=== PATIENT | male | born 1950 | race Caucasian/White ===

== ENCOUNTER 2017-02-14 11:01 | Inpatient (IN) | payer MEDICARE, MEDICAID ==
[~2017-02-14] VITALS: Ht 170.2 cm; Wt 71.8 kg
[~2017-02-14 11:01] MED LIST: ALEN70TA48 PO; BUPR100 PO; CARB200T6 PO; DIAZ10 PO; ESCI20TA PO; METF500T4 PO; METH10TA4 PO; OXYC5 PO; RISP4 PO; SULF-168 PO
[2017-02-14 11:17] LABS: GLUCOSE,POINT OF CARE 170 MG/DL (70-110)
[2017-02-14] MEDS ORDERED: HYDROCODONE/ACETAMINOPHEN 5-325 MG TABLET PO ONE ×2 (12:30→17:30)
[2017-02-14 13:16] LABS: BASOPHILS % (AUTO) 0.9 % (0.0-2.0); EOSINOPHILS % (AUTO) 1.8 % (1.0-6.0); HEMATOCRIT 46.9 % (41-53); HEMOGLOBIN 16.4 g/dL (13.5-17.5); LYMPHOCYTES # (AUTO) 1.3 K/uL (1.0-4.8); LYMPHOCYTES % (AUTO) 24.3 % (22.0-44.0); MEAN CORPUSCULAR HEMOGLOBIN 33.5 pg (26.0-34.0); MEAN CORPUSCULAR HGB CONC 35.1 G/dL (31.0-37.0); MEAN CORPUSCULAR VOLUME 96 fL (80-100); MONOCYTES # (AUTO) 0.5 K/uL (0.1-1.0); MONOCYTES % (AUTO) 8.5 % (2.0-9.0); NEUTROPHILS # (AUTO) 3.5 K/uL (1.8-7.7); NEUTROPHILS % (AUTO) 64.5 % (40.0-70.0); PLATELET COUNT (AUTO) 177 K/uL (150-450); RED CELL DISTRIBUTION WIDTH 14.5 % (11.5-14.5); WHITE BLOOD COUNT (AUTO) 5.5 K/uL (4.5-11.0)
[2017-02-14 13:35] LABS: ANION GAP 3 mmol/L (8-16); CALCIUM, TOTAL 9.7 mg/dL (8.8-10.5); CARBON DIOXIDE 29 mmol/L (22-29); CHLORIDE 104 mmol/L (98-107); CREATININE 0.52 mg/dL (0.60-1.30); GLOMERULAR FILTR. RATE CALC > 60 mL/min (>60); POTASSIUM 5.5 mmol/L (3.5-5.1); SODIUM SERUM 136 mmol/L (136-145); UREA NITROGEN, BLOOD 17 mg/dL (7-18)
[2017-02-14 13:40] LABS: ALANINE AMINOTRANSFERASE 33 U/L (12-78); ALBUMIN 3.8 g/dL (3.4-5.0); ASPARTATE AMINOTRANSFERASE 25 U/L (15-37); BILIRUBIN,TOTAL 0.4 mg/dL (0.1-1.0); TOTAL PROTEIN, SERUM 7.7 g/dL (6.4-8.2)
[2017-02-14] MEDS ORDERED: HALOPERIDOL 5 MG TABLET PO PRN (16:15)
[2017-02-14 21:37] VITALS: BP 160/98
[2017-02-14] MEDS ORDERED: DEXTROSE 50%-WATER 25 GM/50 ML SYRINGE IVP PRN (22:00)
[2017-02-15] VITALS: BP 164/81
[2017-02-15] MEDS: ACETAMINOPHEN 325 MG TABLET PO PRN ×2 (03:09→23:57)
[2017-02-15 06:08] LABS: GLUCOSE COMMENT 1 Received Meds; GLUCOSE,POINT OF CARE 150 MG/DL (70-110)
[2017-02-15] MEDS ORDERED: ALENDRONATE SODIUM 70 MG TABLET PO SCH (06:30)
[2017-02-15] MEDS: INSULIN ASPART 100 UNITS/ML SQ PRN ×3 (07:08→22:11)
[2017-02-15] MEDS: MetFORMIN HCL 500 MG TABLET PO SCH (07:15)
[2017-02-15 08:45] VITALS: BP 109/61
[2017-02-15] MEDS: IBUPROFEN 600 MG TABLET PO PRN ×3 (09:27→17:26)
[2017-02-15] MEDS: CarBAMazepine 200 MG TABLET PO SCH ×2 (09:28→17:26)
[2017-02-15] MEDS: DIGOXIN 125 MCG TABLET PO SCH (09:28)
[2017-02-15] MEDS ORDERED: MAG HYDROX/AL HYDROX/SIMETH ES 30 ML SUSPENSION UDCUP PO PRN (10:00)
[2017-02-15] MEDS ORDERED: MAGNESIUM HYDROXIDE SUSPENSION 30 ML UDCUP PO PRN (10:00)
[2017-02-15] MEDS ORDERED: LOPERAMIDE HCL 2 MG CAPSULE PO PRN (10:00)
[2017-02-15] MEDS ORDERED: CloNIDine HCL 0.1 MG TABLET PO PRN (10:00)
[2017-02-15] MEDS ORDERED: ONDANSETRON HCL 4 MG TABLET PO PRN (10:00)
[2017-02-15] MEDS ORDERED: BACITRACIN 28.4 GM OINTMENT TP PRN (10:00)
[2017-02-15] MEDS ORDERED: BENZOCAINE/MENTHOL LOZENGE MM PRN (10:00)
[2017-02-15] MEDS ORDERED: ALBUTEROL SULFATE HFA 90 MCG/PUFF 8 GM INHALER IH PRN (10:00)
[2017-02-15] MEDS ORDERED: PETROLATUM,WHITE 71 GM JELLY TP PRN (10:00)
[2017-02-15] MEDS ORDERED: BENZOCAINE/MENTHOL LOZENGE [8 LOZENGES/PACKET] MM PRN (10:19)
[2017-02-15 10:40] VITALS: BP 126/72
[2017-02-15 11:33] LABS: GLUCOSE COMMENT 1 Received Meds; GLUCOSE,POINT OF CARE 148 MG/DL (70-110)
[2017-02-15 17:08] LABS: GLUCOSE,POINT OF CARE 95 MG/DL (70-110)
[2017-02-15 17:20] VITALS: BP 163/71
[2017-02-15 18:30] VITALS: BP 140/73
[2017-02-15 20:28] LABS: GLUCOSE,POINT OF CARE 152 MG/DL (70-110)
[2017-02-15] MEDS: ZOLPIDEM TARTRATE 10 MG TABLET PO PRN ×2 (21:58)
[2017-02-15 23:50] VITALS: BP 163/97
[2017-02-15] MEDS: LORazepam 2 MG TABLET PO PRN (23:56)
[2017-02-16] VITALS (7 sets, daily range): BP systolic 140–174; BP diastolic 80–100
[2017-02-16 06:35] LABS: GLUCOSE,POINT OF CARE 126 MG/DL (70-110)
[2017-02-16] MEDS: MetFORMIN HCL 500 MG TABLET PO SCH (07:30)
[2017-02-16] MEDS: CarBAMazepine 200 MG TABLET PO SCH ×2 (08:43→16:41)
[2017-02-16] MEDS: OMEPRAZOLE 20 MG CAPSULE PO SCH (08:43)
[2017-02-16] MEDS: DIGOXIN 125 MCG TABLET PO SCH (08:43)
[2017-02-16] MEDS: DOCUSATE SODIUM 100 MG CAPSULE PO SCH (08:43)
[2017-02-16] MEDS: INSULIN ASPART 100 UNITS/ML SQ PRN ×2 (11:30→22:59)
[2017-02-16 11:43] LABS: GLUCOSE,POINT OF CARE 152 MG/DL (70-110)
[2017-02-16 18:17] LABS: GLUCOSE,POINT OF CARE 147 MG/DL (70-110)
[2017-02-16] MEDS: IBUPROFEN 600 MG TABLET PO PRN (18:47)
[2017-02-16] MEDS: LORazepam 2 MG TABLET PO PRN (18:47)
[2017-02-17] MEDS: IBUPROFEN 600 MG TABLET PO PRN ×2 (01:30→21:15)
[2017-02-17 01:31] VITALS: BP 146/85
[2017-02-17] MEDS: ZOLPIDEM TARTRATE 10 MG TABLET PO PRN (02:16)
[2017-02-17 06:23] LABS: GLUCOSE,POINT OF CARE 114 MG/DL (70-110)
[2017-02-17] MEDS: MetFORMIN HCL 500 MG TABLET PO SCH (07:04)
[2017-02-17] MEDS: LISINOPRIL 10 MG TABLET PO SCH (08:24)
[2017-02-17] MEDS: DIGOXIN 125 MCG TABLET PO SCH (08:24)
[2017-02-17] MEDS: DOCUSATE SODIUM 100 MG CAPSULE PO SCH (08:24)
[2017-02-17] MEDS: OMEPRAZOLE 20 MG CAPSULE PO SCH (08:24)
[2017-02-17] MEDS: CarBAMazepine 200 MG TABLET PO SCH ×2 (08:24→17:08)
[2017-02-17 09:17] VITALS: BP 165/76
[2017-02-17] MEDS: INSULIN ASPART 100 UNITS/ML SQ PRN ×2 (11:21→21:11)
[2017-02-17 12:04] LABS: GLUCOSE,POINT OF CARE 150 MG/DL (70-110)
[2017-02-17 17:19] VITALS: BP 161/77
[2017-02-17 17:28] LABS: GLUCOSE,POINT OF CARE 133 MG/DL (70-110)
[2017-02-17 20:48] LABS: GLUCOSE,POINT OF CARE 149 MG/DL (70-110)
[2017-02-17 21:15] VITALS: BP 140/85
[2017-02-17 22:08] VITALS: BP 142/77
[2017-02-18] MEDS: LORazepam 2 MG TABLET PO PRN ×2 (00:14→22:16)
[2017-02-18] MEDS: ZOLPIDEM TARTRATE 10 MG TABLET PO PRN ×2 (00:14→22:16)
[2017-02-18 00:24] VITALS: BP 138/69
[2017-02-18 00:28] LABS: GLUCOSE,POINT OF CARE 124 MG/DL (70-110)
[2017-02-18 05:46] VITALS: BP 151/78
[2017-02-18] MEDS: IBUPROFEN 600 MG TABLET PO PRN ×2 (05:51→16:20)
[2017-02-18 06:33] LABS: GLUCOSE,POINT OF CARE 105 MG/DL (70-110)
[2017-02-18] MEDS: INSULIN ASPART 100 UNITS/ML SQ PRN ×2 (06:40→21:06)
[2017-02-18] MEDS: MetFORMIN HCL 500 MG TABLET PO SCH (07:03)
[2017-02-18 08:22] LABS: CHOL/HDL RATIO 2.2 (4.2-7.3)
[2017-02-18 08:40] VITALS: BP 177/77
[2017-02-18] MEDS: DOCUSATE SODIUM 100 MG CAPSULE PO SCH (08:54)
[2017-02-18] MEDS: CarBAMazepine 200 MG TABLET PO SCH ×2 (08:54→16:18)
[2017-02-18] MEDS: LISINOPRIL 10 MG TABLET PO SCH (08:54)
[2017-02-18] MEDS: DIGOXIN 125 MCG TABLET PO SCH (08:54)
[2017-02-18] MEDS: OMEPRAZOLE 20 MG CAPSULE PO SCH (08:54)
[2017-02-18 11:17] LABS: GLUCOSE,POINT OF CARE 129 MG/DL (70-110)
[2017-02-18 16:20] VITALS: BP 127/87
[2017-02-18 17:03] LABS: GLUCOSE,POINT OF CARE 116 MG/DL (70-110)
[2017-02-18 17:20] VITALS: BP 144/86
[2017-02-18 20:48] LABS: GLUCOSE COMMENT 1 Received Meds; GLUCOSE,POINT OF CARE 153 MG/DL (70-110)
[2017-02-19 05:18] LABS: GLUCOSE COMMENT 1 FASTING; GLUCOSE,POINT OF CARE 98 MG/DL (70-110)
[2017-02-19] MEDS: MetFORMIN HCL 500 MG TABLET PO SCH (06:30)
[2017-02-19 07:03] VITALS: BP 135/79
[2017-02-19 08:18] VITALS: BP 166/72
[2017-02-19] MEDS: IBUPROFEN 600 MG TABLET PO PRN ×2 (08:18→16:17)
[2017-02-19] MEDS: DOCUSATE SODIUM 100 MG CAPSULE PO SCH (08:53)
[2017-02-19] MEDS: LISINOPRIL 10 MG TABLET PO SCH (08:53)
[2017-02-19] MEDS: OMEPRAZOLE 20 MG CAPSULE PO SCH (08:53)
[2017-02-19] MEDS: CarBAMazepine 200 MG TABLET PO SCH ×2 (08:54→16:18)
[2017-02-19] MEDS: DIGOXIN 125 MCG TABLET PO SCH (08:54)
[2017-02-19 09:18] VITALS: BP 160/88
[2017-02-19 11:23] LABS: GLUCOSE,POINT OF CARE 136 MG/DL (70-110)
[2017-02-19 16:15] VITALS: BP 154/80
[2017-02-19 17:00] VITALS: BP 154/80
[2017-02-19 17:13] LABS: GLUCOSE,POINT OF CARE 114 MG/DL (70-110)
[2017-02-19 17:15] VITALS: BP 150/79
[2017-02-19] MEDS: ZOLPIDEM TARTRATE 10 MG TABLET PO PRN (21:02)
[2017-02-19 21:07] LABS: GLUCOSE,POINT OF CARE 130 MG/DL (70-110)
[2017-02-20 01:10] VITALS: BP 161/73
[2017-02-20] MEDS: LORazepam 2 MG TABLET PO PRN (01:11)
[2017-02-20] MEDS: IBUPROFEN 600 MG TABLET PO PRN ×3 (01:11→20:32)
[2017-02-20 05:00] VITALS: BP 146/71
[2017-02-20] MEDS: ACETAMINOPHEN 325 MG TABLET PO PRN (05:03)
[2017-02-20 05:39] LABS: GLUCOSE COMMENT 1 Received Meds; GLUCOSE,POINT OF CARE 103 MG/DL (70-110)
[2017-02-20] MEDS: MetFORMIN HCL 500 MG TABLET PO SCH (06:58)
[2017-02-20] MEDS: DOCUSATE SODIUM 100 MG CAPSULE PO SCH (08:34)
[2017-02-20] MEDS: CarBAMazepine 200 MG TABLET PO SCH ×2 (08:34→16:32)
[2017-02-20] MEDS: DIGOXIN 125 MCG TABLET PO SCH (08:34)
[2017-02-20] MEDS: LISINOPRIL 10 MG TABLET PO SCH (08:34)
[2017-02-20] MEDS: OMEPRAZOLE 20 MG CAPSULE PO SCH (08:34)
[2017-02-20 08:35] VITALS: BP 162/81
[2017-02-20 11:28] LABS: GLUCOSE,POINT OF CARE 130 MG/DL (70-110)
[2017-02-20 16:00] VITALS: BP 138/62
[2017-02-20] MEDS: INSULIN ASPART 100 UNITS/ML SQ PRN ×2 (17:14→21:01)
[2017-02-20 17:32] LABS: GLUCOSE,POINT OF CARE 159 MG/DL (70-110)
[2017-02-20 20:33] VITALS: BP 155/85
[2017-02-20 20:57] LABS: GLUCOSE,POINT OF CARE 169 MG/DL (70-110)
[2017-02-20 21:33] VITALS: BP 147/68
[2017-02-21] MEDS: ACETAMINOPHEN 325 MG TABLET PO PRN ×3 (04:48→18:00)
[2017-02-21 06:04] LABS: GLUCOSE COMMENT 1 Received Meds; GLUCOSE,POINT OF CARE 120 MG/DL (70-110)
[2017-02-21] MEDS: MetFORMIN HCL 500 MG TABLET PO SCH (07:10)
[2017-02-21 09:41] VITALS: BP 158/74
[2017-02-21] MEDS: DIGOXIN 125 MCG TABLET PO SCH (09:43)
[2017-02-21] MEDS: DOCUSATE SODIUM 100 MG CAPSULE PO SCH (09:43)
[2017-02-21] MEDS: LISINOPRIL 10 MG TABLET PO SCH (09:44)
[2017-02-21] MEDS: OMEPRAZOLE 20 MG CAPSULE PO SCH (09:44)
[2017-02-21] MEDS: CarBAMazepine 200 MG TABLET PO SCH ×3 (09:44→17:59)
[2017-02-21 11:28] LABS: GLUCOSE,POINT OF CARE 134 MG/DL (70-110)
[2017-02-21] MEDS: IBUPROFEN 600 MG TABLET PO PRN ×2 (12:24→21:35)
[2017-02-21 13:27] LABS: APPEARANCE,URINE CLEAR (CLEAR); GLUCOSE, URINE (UA) NEGATIVE (NEGATIVE); KETONES,URINE NEGATIVE (NEGATIVE); LEUKOCYTE ESTERASE ,URINE NEGATIVE (NEGATIVE); OCCULT BLOOD,URINE NEGATIVE (NEGATIVE); PH,URINE 6.5 (5.0-8.0); PROTEIN,URINE NEGATIVE (NEGATIVE)
[2017-02-21 13:57] LABS: ADD UA MICROSCOPIC NO
[2017-02-21 18:05] VITALS: BP 180/84
[2017-02-21 19:10] VITALS: BP 142/88
[2017-02-21 21:18] LABS: GLUCOSE,POINT OF CARE 130 MG/DL (70-110)
[2017-02-21] MEDS: LORazepam 2 MG TABLET PO PRN (21:37)
[2017-02-22 02:52] VITALS: BP 148/98
[2017-02-22] MEDS: ACETAMINOPHEN 325 MG TABLET PO PRN (02:56)
[2017-02-22 06:07] LABS: GLUCOSE,POINT OF CARE 104 MG/DL (70-110)
[2017-02-22] MEDS: MetFORMIN HCL 500 MG TABLET PO SCH (07:10)
[2017-02-22] MEDS: DOCUSATE SODIUM 100 MG CAPSULE PO SCH (08:08)
[2017-02-22] MEDS: DIGOXIN 125 MCG TABLET PO SCH (08:08)
[2017-02-22] MEDS: OMEPRAZOLE 20 MG CAPSULE PO SCH (08:08)
[2017-02-22] MEDS: CarBAMazepine 200 MG TABLET PO SCH ×2 (08:08→17:09)
[2017-02-22] MEDS: LISINOPRIL 10 MG TABLET PO SCH (08:08)
[2017-02-22 08:10] VITALS: BP 175/63
[2017-02-22] MEDS: IBUPROFEN 600 MG TABLET PO PRN ×2 (08:10→15:10)
[2017-02-22 09:10] VITALS: BP 154/76
[2017-02-22 15:10] VITALS: BP 140/82
[2017-02-22 20:37] VITALS: BP 147/67
[2017-02-22] MEDS: ZOLPIDEM TARTRATE 10 MG TABLET PO PRN (22:02)
[2017-02-23 00:42] VITALS: BP 169/81
[2017-02-23] MEDS: LORazepam 2 MG TABLET PO PRN (00:44)
[2017-02-23 02:25] VITALS: BP 164/90
[2017-02-23] MEDS: IBUPROFEN 600 MG TABLET PO PRN ×3 (02:27→21:40)
[2017-02-23 05:42] LABS: GLUCOSE COMMENT 1 Received Meds; GLUCOSE,POINT OF CARE 135 MG/DL (70-110)
[2017-02-23] MEDS: MetFORMIN HCL 500 MG TABLET PO SCH (07:28)
[2017-02-23 08:00] VITALS: BP 152/77
[2017-02-23] MEDS: OMEPRAZOLE 20 MG CAPSULE PO SCH (08:24)
[2017-02-23] MEDS: CarBAMazepine 200 MG TABLET PO SCH ×2 (08:24→16:47)
[2017-02-23] MEDS: DOCUSATE SODIUM 100 MG CAPSULE PO SCH (08:24)
[2017-02-23] MEDS: LISINOPRIL 10 MG TABLET PO SCH (08:25)
[2017-02-23] MEDS: DIGOXIN 125 MCG TABLET PO SCH (08:25)
[2017-02-23] MEDS: DIVALPROEX SODIUM 500 MG DR TABLET PO SCH ×2 (08:25→16:47)
[2017-02-23 08:41] VITALS: BP 150/76
[2017-02-23 09:41] VITALS: BP 140/80
[2017-02-23 14:38] LABS: APPEARANCE,URINE CLEAR (CLEAR); GLUCOSE, URINE (UA) NEGATIVE (NEGATIVE); KETONES,URINE NEGATIVE (NEGATIVE); LEUKOCYTE ESTERASE ,URINE NEGATIVE (NEGATIVE); OCCULT BLOOD,URINE NEGATIVE (NEGATIVE); PROTEIN,URINE NEGATIVE (NEGATIVE)
[2017-02-23 15:06] LABS: ADD UA MICROSCOPIC NO
[2017-02-23] MEDS: ACETAMINOPHEN 325 MG TABLET PO PRN (16:18)
[2017-02-24 00:12] VITALS: BP 149/75
[2017-02-24] MEDS: LORazepam 2 MG TABLET PO PRN (00:19)
[2017-02-24] MEDS: ZOLPIDEM TARTRATE 10 MG TABLET PO PRN ×2 (00:19→19:27)
[2017-02-24] MEDS: ACETAMINOPHEN 325 MG TABLET PO PRN (05:24)
[2017-02-24] MEDS: MetFORMIN HCL 500 MG TABLET PO SCH (07:12)
[2017-02-24 08:02] VITALS: BP 135/76
[2017-02-24] MEDS: IBUPROFEN 600 MG TABLET PO PRN ×3 (08:02→20:47)
[2017-02-24] MEDS: DIVALPROEX SODIUM 500 MG DR TABLET PO SCH ×2 (08:53→17:07)
[2017-02-24] MEDS: DOCUSATE SODIUM 100 MG CAPSULE PO SCH (08:53)
[2017-02-24] MEDS: OMEPRAZOLE 20 MG CAPSULE PO SCH (08:53)
[2017-02-24] MEDS: LISINOPRIL 10 MG TABLET PO SCH (08:53)
[2017-02-24] MEDS: CarBAMazepine 200 MG TABLET PO SCH ×2 (08:53→17:07)
[2017-02-24] MEDS: DIGOXIN 125 MCG TABLET PO SCH (08:53)
[2017-02-24 14:34] VITALS: BP 140/87
[2017-02-24 17:10] VITALS: BP 162/99
[2017-02-24 20:45] VITALS: BP 155/79
[2017-02-24 21:45] VITALS: BP 145/81
[2017-02-25 05:58] LABS: GLUCOSE,POINT OF CARE 109 MG/DL (70-110)
[2017-02-25 06:44] VITALS: BP 157/70
[2017-02-25] MEDS: MetFORMIN HCL 500 MG TABLET PO SCH (07:12)
[2017-02-25 08:38] VITALS: BP 160/96
[2017-02-25] MEDS: CarBAMazepine 200 MG TABLET PO SCH ×2 (08:41→17:09)
[2017-02-25] MEDS: DIVALPROEX SODIUM 500 MG DR TABLET PO SCH ×2 (08:41→17:09)
[2017-02-25] MEDS: DOCUSATE SODIUM 100 MG CAPSULE PO SCH (08:41)
[2017-02-25] MEDS: LISINOPRIL 10 MG TABLET PO SCH (08:41)
[2017-02-25] MEDS: DIGOXIN 125 MCG TABLET PO SCH (08:41)
[2017-02-25] MEDS: OMEPRAZOLE 20 MG CAPSULE PO SCH (08:41)
[2017-02-25] MEDS: IBUPROFEN 600 MG TABLET PO PRN (12:26)
[2017-02-25 17:00] VITALS: BP 160/88
[2017-02-25 18:34] VITALS: BP 158/86
[2017-02-25] MEDS: LORazepam 2 MG TABLET PO PRN (19:47)
[2017-02-26 05:08] VITALS: BP 172/96
[2017-02-26 06:08] LABS: GLUCOSE,POINT OF CARE 130 MG/DL (70-110)
[2017-02-26] MEDS: MetFORMIN HCL 500 MG TABLET PO SCH (07:06)
[2017-02-26 08:05] VITALS: BP 143/88
[2017-02-26 08:19] VITALS: BP 136/77
[2017-02-26] MEDS: CarBAMazepine 200 MG TABLET PO SCH (08:53)
[2017-02-26] MEDS: DOCUSATE SODIUM 100 MG CAPSULE PO SCH (08:53)
[2017-02-26] MEDS: DIVALPROEX SODIUM 500 MG DR TABLET PO SCH (08:54)
[2017-02-26] MEDS: OMEPRAZOLE 20 MG CAPSULE PO SCH (08:54)
[2017-02-26] MEDS: DIGOXIN 125 MCG TABLET PO SCH (08:54)
[2017-02-26] MEDS: IBUPROFEN 600 MG TABLET PO PRN (08:58)
[2017-02-26] MEDS ORDERED: LISINOPRIL 20 MG TABLET PO SCH (09:00)
[2017-02-26] MEDS ORDERED: DIVA500T35 PO (09:23)
[2017-02-26] MEDS ORDERED: DIGO125T PO (09:24)
[2017-02-26] MEDS ORDERED: DSS100 PO (09:24)
[2017-02-26] MEDS ORDERED: LISI-662 PO (09:25)
[2017-02-26] MEDS ORDERED: OMEP20 PO (09:25)
[2017-02-26 09:55] VITALS: BP 140/81
== END 2017-02-26 15:20 | disposition home or self-care (01) | DRG 885 ==
LOC: EMS 11:02 → 3EX 17:30
PROVIDERS: ADMIT Psychiatry & Neurology Psychiatry; ATTEND Psychiatry & Neurology Psychiatry
DX: F33.2 Major depressive disorder, recurrent severe without psychotic features (principal); E11.65 Type 2 diabetes mellitus with hyperglycemia; R45.851 Suicidal ideations; J44.9 Chronic obstructive pulmonary disease, unspecified; G40.909 Epilepsy, unspecified, not intractable, without status epilepticus; F12.90 Cannabis use, unspecified, uncomplicated; G47.00 Insomnia, unspecified; G80.9 Cerebral palsy, unspecified; G89.29 Other chronic pain; I10 Essential (primary) hypertension; K21.9 Gastro-esophageal reflux disease without esophagitis; K59.00 Constipation, unspecified; M19.90 Unspecified osteoarthritis, unspecified site; Z88.5 Allergy status to narcotic agent; M54.5 Low back pain; Z71.51 Drug abuse counseling and surveillance of drug abuser; Z56.0 Unemployment, unspecified; Z79.899 Other long term (current) drug therapy; R30.0 Dysuria; Z87.440 Personal history of urinary (tract) infections
CPT/HCPCS: 82962; 84132; 99285; G0480

== ENCOUNTER 2017-03-19 18:01 | Emergency (ER) | payer MEDICARE, MEDICAID ==
[~2017-03-19] VITALS: Ht 172.7 cm; Wt 75.0 kg
[~2017-03-19 18:01] MED LIST changes: -ALEN70TA48 PO; -BUPR100 PO; -DIAZ10 PO; +DIGO125T PO; +DIVA500T35 PO; +DSS100 PO; -ESCI20TA PO; +LISI-662 PO; -METH10TA4 PO; +OMEP20 PO; -OXYC5 PO; -RISP4 PO; -SULF-168 PO
[2017-03-19] MEDS ORDERED: CefTRIAXone SODIUM 1 GM/VIAL IM ONE (19:00)
[2017-03-19] MEDS ORDERED: LIDOCAINE HCL/PF 1% 2 ML VIAL IM ONE (19:00)
[2017-03-19 19:42] VITALS: BP 126/89
== END 2017-03-19 20:05 | disposition home or self-care (01) ==
LOC: EMS 18:06
DX: L03.115 Cellulitis of right lower limb (principal); E11.9 Type 2 diabetes mellitus without complications; I10 Essential (primary) hypertension; J44.9 Chronic obstructive pulmonary disease, unspecified; F12.90 Cannabis use, unspecified, uncomplicated; Z88.5 Allergy status to narcotic agent
CPT/HCPCS: 96372; 99283; J0696; J3490

== ENCOUNTER 2017-08-08 16:51 | Emergency (ER) | payer MEDICARE, MEDICAID ==
[~2017-08-08] VITALS: Ht 170.2 cm; Wt 75.0 kg
[~2017-08-08 16:51] MED LIST changes: +DIGO-44 PO; -DIGO125T PO
[2017-08-08 18:48] LABS: BASOPHILS % (AUTO) 0.8 % (0.0-2.0); EOSINOPHILS % (AUTO) 0.6 % (1.0-6.0); HEMATOCRIT 37.4 % (41-53); HEMOGLOBIN 12.7 g/dL (13.5-17.5); LYMPHOCYTES # (AUTO) 0.7 K/uL (1.0-4.8); LYMPHOCYTES % (AUTO) 15.2 % (22.0-44.0); MEAN CORPUSCULAR HEMOGLOBIN 32.9 pg (26.0-34.0); MEAN CORPUSCULAR VOLUME 97 fL (80-100); MONOCYTES # (AUTO) 0.4 K/uL (0.1-1.0); MONOCYTES % (AUTO) 9.2 % (2.0-9.0); NEUTROPHILS # (AUTO) 3.4 K/uL (1.8-7.7); NEUTROPHILS % (AUTO) 74.2 % (40.0-70.0); PLATELET COUNT (AUTO) 191 K/uL (150-450); RED BLOOD CELL COUNT(AUTO) 3.86 MIL/uL (4.50-5.90)
[2017-08-08 18:56] LABS: ANION GAP 3 mmol/L (8-16); CALCIUM, TOTAL 9.3 mg/dL (8.8-10.5); CARBON DIOXIDE 29 mmol/L (22-29); CHLORIDE 104 mmol/L (98-107); CREATININE 0.54 mg/dL (0.60-1.30); GLOMERULAR FILTR. RATE CALC > 60 mL/min (>60); GLUCOSE,RANDOM 117 mg/dL (70-110); POTASSIUM 4.5 mmol/L (3.5-5.1); SODIUM SERUM 136 mmol/L (136-145); UREA NITROGEN, BLOOD 12 mg/dL (7-18)
[2017-08-08 19:02] LABS: ALANINE AMINOTRANSFERASE 16 U/L (12-78); ALKALINE PHOSPHATASE 100 U/L (46-116); ASPARTATE AMINOTRANSFERASE 13 U/L (15-37); BILIRUBIN,TOTAL 0.3 mg/dL (0.1-1.0); TOTAL PROTEIN, SERUM 6.4 g/dL (6.4-8.2)
[2017-08-08 19:44] LABS: DIGOXIN < 0.20 ng/mL (0.90-2.00)
[2017-08-08] MEDS ORDERED: LORazepam 2 MG/ML VIAL IM ONE (21:30)
[2017-08-08 21:47] LABS: APPEARANCE,URINE CLEAR (CLEAR); BILIRUBIN,URINE PRELIM. POSITIVE (NEGATIVE); GLUCOSE, URINE (UA) NEGATIVE (NEGATIVE); KETONES,URINE 15 mg/dL (NEGATIVE); LEUKOCYTE ESTERASE ,URINE TRACE (NEGATIVE); NITRATE,URINE NEGATIVE (NEGATIVE); OCCULT BLOOD,URINE NEGATIVE (NEGATIVE); PROTEIN,URINE NEGATIVE (NEGATIVE)
[2017-08-08 21:49] LABS: BACTERIA,URINE None Seen /HPF (None Seen); RBC,URINE 0-2 /HPF (0-2); SQUAMOUS EPITHELIAL CELL,UR Rare /LPF (None Seen)
[2017-08-08 21:52] LABS: AMPHET/METH SCREEN,URINE NEGATIVE (NEGATIVE); BARBITURATE SCREEN, URINE NEGATIVE (NEGATIVE); BENZODIAZEPINES SCREEN,URINE POSITIVE (NEGATIVE); CANNABINOID SCREEN,URINE POSITIVE (NEGATIVE); COCAINE SCREEN,URINE NEGATIVE (NEGATIVE); METHADONE SCREEN, URINE NEGATIVE (NEGATIVE); OPIATE SCREEN,URINE POSITIVE (NEGATIVE); PHENCYCLIDINE SCREEN,URINE NEGATIVE (NEGATIVE)
[2017-08-08 22:04] LABS: VALPROIC ACID 80 mcg/mL (50-100)
[2017-08-08 22:17] LABS: CARBAMAZEPINE (TEGRETOL) 15.9 mcg/mL (4.0-12.0)
[2017-08-09 10:31] VITALS: BP 140/89
== END 2017-08-09 10:32 | disposition home or self-care (01) ==
LOC: EMS 16:52
DX: F03.90 Unspecified dementia, unspecified severity, without behavioral disturbance, psychotic disturbance, mood disturbance, and anxiety (principal); E11.9 Type 2 diabetes mellitus without complications; G30.9 Alzheimer's disease, unspecified; G80.9 Cerebral palsy, unspecified; I10 Essential (primary) hypertension; J44.9 Chronic obstructive pulmonary disease, unspecified; Z86.73 Personal history of transient ischemic attack (TIA), and cerebral infarction without residual deficits; Z88.5 Allergy status to narcotic agent; Z79.899 Other long term (current) drug therapy
CPT/HCPCS: 36415; 80053; 80156; 80162; 80164; 80307; 81001; 85025; 96372; 99284; G0480; J2060